=== PATIENT | female | born 1995 | race Asian ===

== ENCOUNTER 2024-02-29 23:57 | Emergency (ER) | payer BC, MEDICAID ==
[~2024-02-29] VITALS: Ht 152.4 cm; Wt 61.4 kg
[~2024-02-29 23:57] MED LIST: CYCL-1 PO
[2024-03-01 00:06] VITALS: TEMP 98.1
[2024-03-01] MEDS ORDERED: levetiracetam inj 1,500 MG in normal saline 100ml IV soln 100 ML IV ONE (00:10)
[2024-03-01] MEDS ORDERED: ondansetron/PF 4mg/2ml inj IV ONE (00:15)
[2024-03-01] MEDS: LORazepam 2 mg/ml vial IV ONE (00:18)
[2024-03-01] MEDS: normal saline 1000ml 1,000 ML IV ONE (00:18)
[2024-03-01] MEDS: ondansetron/PF 4mg/2ml inj IV ONE (00:40)
[2024-03-01] MEDS: levetiracetamNACL 1500mg/100mL 100 ML IV ONE (00:40)
[2024-03-01 01:30] LABS: BASOPHILS # (AUTO) 0.1 X10'3 (0-0.2); BASOPHILS % (AUTO) 0.6 % (0-1); EOSINOPHILS # (AUTO) 0.1 X10'3 (0-0.9); EOSINOPHILS % (AUTO) 1.1 % (0-6); HEMATOCRIT 34.2 % (35.0-45.0); HEMOGLOBIN 10.5 g/dl (12.0-16.0); LYMPHOCYTES % (AUTO) 21.3 % (21-51); MEAN CORPUSCULAR HEMOGLOBIN 20.3 PG (27.0-31.0); MEAN CORPUSCULAR HGB CONC 30.7 g/dL (33.0-36.5); MEAN CORPUSCULAR VOLUME 66.2 FL (78-98); MEAN PLATELET VOLUME 6.3 FL (7.4-10.4); MONOCYTES # (AUTO) 0.7 X10'3 (0-0.9); MONOCYTES % (AUTO) 7.1 % (2-12); NEUTROPHILS # (AUTO) 6.5 X10'3 (1.8-7.7); NEUTROPHILS % (AUTO) 69.9 % (42-75); PLATELET COUNT 393 X10'3 (140-440); RED BLOOD COUNT 5.17 X10'6 (4.20-5.60); RED CELL DISTRIBUTION WIDTH 15.8 % (11.5-14.5); WHITE BLOOD COUNT 9.3 X10'3 (4.5-11.0)
[2024-03-01 01:54] LABS: ALBUMIN 3.6 G/DL (3.4-5.0); ANION GAP 7 (8-16); BLOOD UREA NITROGEN 6 MG/DL (7-18); BUN/CREATININE RATIO 7.5 (10.0-20.0); CALCIUM 8.2 MG/DL (8.5-10.1); CHLORIDE 106 MMOL/L (99-107); GLUCOSE 112 MG/DL (70-104); POTASSIUM 3.6 MMOL/L (3.5-5.1); PRO BRAIN NATRIURETIC PEPTIDE 55 PG/ML (0-125); SODIUM 139 MMOL/L (135-145); TOTAL CARBON DIOXIDE 25.6 MMOL/L (24-32); eCRCL 75 ML/MIN; eGFR 85 ML/MIN
[2024-03-01 02:06] LABS: PLATELET ESTIMATE NORMAL
[2024-03-01 02:07] LABS: ELLIPTOCYTES 2+; MICROCYTOSIS 2+; POIKILOCYTOSIS FEW
[2024-03-01 03:57] VITALS: BP 113/71; PULSE 92; RESP 15; O2SAT 98
== END 2024-03-01 04:04 | disposition home or self-care (01) ==
LOC: ER 23:58
DX: G40.89 Other seizures (principal); Z91.040 Latex allergy status
CPT/HCPCS: 36415; 80048; 83735; 83880; 84145; 85008; 85025; 93005; 96365; 96375; 99284; J1953; J2060; J2405; J7030

== ENCOUNTER 2024-03-30 10:17 | Outpatient (CLI) | payer BC | END 2024-03-30 23:59 | disposition home or self-care (01) | LOC: RAD 10:17 | PROVIDERS: ATTEND Nurse Practitioner Family | DX: G40.909 Epilepsy, unspecified, not intractable, without status epilepticus (principal) | CPT/HCPCS: 95816 ==